=== PATIENT | female | born 1950 | race Caucasian/White ===

== ENCOUNTER 2022-02-19 10:28 | Emergency (ER) | payer MEDICARE, OTHER ==
[~2022-02-19] VITALS: Ht 165.1 cm; Wt 62.6 kg
[~2022-02-19 10:28] MED LIST: CIPROFLOXACIN500 MG PO; PYRIDIUM200 MG PO
[2022-02-19] MEDS ORDERED: PREDNISONE20 MG PO (13:25)
[2022-02-19] MEDS ORDERED: VITAMIN B COMP1 EACH PO (13:26)
[2022-02-19] MEDS ORDERED: VITAMIN D250 MCG PO (13:26)
[2022-02-19] MEDS ORDERED: ROSUVASTATIN CA20 MG (13:26)
[2022-02-19] MEDS ORDERED: SERTRALINE HCL50 MG PO (13:26)
[2022-02-19] MEDS ORDERED: COQ-1030 MG PO (13:27)
[2022-02-19] MEDS ORDERED: ONDANSETRON ODT8 MG PO (14:13)
[2022-02-19] MEDS ORDERED: HYDROCODON-ACE1 EA10 PO (14:13)
== END 2022-02-19 16:09 | disposition home or self-care (01) ==
LOC: ED 10:28
DX: M54.32 Sciatica, left side (principal); Z79.899 Other long term (current) drug therapy; Z79.52 Long term (current) use of systemic steroids
CPT/HCPCS: 72100; 99283-25; A9270